=== PATIENT | female | born 1960 | race Caucasian/White ===

== ENCOUNTER 2024-01-21 18:32 | Inpatient (IN) | payer SELFPAY ==
[~2024-01-21] VITALS: Ht 152.4 cm; Wt 82.8 kg
[2024-01-21 21:27] VITALS: PULSE 93; RESP 16; TEMP 98.9
[2024-01-21 22:00] VITALS: BP 132/63; PULSE 102; RESP 22; TEMP 99.2; O2SAT 97
[2024-01-21] MEDS: AMIODARONE 900MG 900 MG in Premix Bag 1 BAG IV ONE (22:00)
[2024-01-21] MEDS: AMIODARONE HCL 150 MG/100 ML BAG IV ONE (22:36)
[2024-01-21 23:15] VITALS: PULSE 95; RESP 26; O2SAT 99
[2024-01-21 23:30] VITALS: BP 113/91; PULSE 143; RESP 30; O2SAT 100
[2024-01-21] MEDS: ENOXAPARIN SODIUM INJ 100 MG/ML SYR SC STA (23:44)
[2024-01-21 23:45] VITALS: PULSE 142; RESP 33; O2SAT 99
[2024-01-22] VITALS (46 sets, daily range): BP systolic 97–149; BP diastolic 58–121; PULSE 62–143; RESP 17–41; TEMP 97.3–98.2; O2SAT 91–100
[2024-01-22 06:51] LABS: TROPONIN I 0.257 ng/mL (0-0.300)
[2024-01-22] MEDS: AMIODARONE 900MG 500 ML IV ONE ×2 (09:00→20:23)
[2024-01-22] MEDS ORDERED: FUROSEMIDE40 MG PO (09:06)
[2024-01-22] MEDS: FUROSEMIDE INJ 10 MG/ML 4 ML VIAL IV SCH ×2 (09:15→14:00)
[2024-01-22] MEDS ORDERED: ONDANSETRON HCL INJ 2MG/ML 2ML 2 MG/ML VIAL IV PRN (12:45)
[2024-01-22] MEDS ORDERED: AMIODARONE 900MG 900 MG in Premix Bag 1 BAG IV SCH (15:15)
[2024-01-22] MEDS: METOPROLOL TARTRATE 25 MG TAB PO SCH (17:03)
[2024-01-22 19:21] LABS: BASOPHILS # (AUTO) 0.1 (0.0-0.1); BASOPHILS % 0.6 % (0.0-1.0); EOSINOPHILS % 0.2 % (0.0-6.0); HEMATOCRIT 39.4 % (34.2-44.1); HEMOGLOBIN 12.2 g/dL (12.0-16.0); LYMPHOCYTES % 9.6 % (18.0-39.1); MEAN CORPUSCULAR VOLUME 93.8 fL (81-99); MONOCYTES # (AUTO) 0.6 (0.2-0.8); MONOCYTES % 5.5 % (4.4-11.3); NEUTROPHILS # (AUTO) 8.5 (2.1-6.9); NEUTROPHILS % 83.9 % (38.7-80.0); PLATELET COUNT 202 x10e3/uL (140-360); WHITE BLOOD COUNT 10.15 x10e3/uL (4.8-10.8)
[2024-01-22 19:39] LABS: ALBUMIN 3.5 g/dL (3.5-5.0); ALBUMIN/GLOBULIN RATIO 1.1 (0.8-2.0); ANION GAP 16.1 mmol/L (8-16); BILIRUBIN,TOTAL 1.4 mg/dL (0.2-1.2); CALCIUM 8.6 mg/dL (8.4-10.2); CREATININE, SERUM 0.98 mg/dL (0.57-1.11); TOTAL PROTEIN 6.7 g/dL (6.5-8.1)
[2024-01-22 19:48] LABS: POTASSIUM 3.1 mmol/L (3.5-5.1)
[2024-01-22 19:58] LABS: THYROID STIMULATING HORMONE 0.037 uIU/mL (0.350-4.940); TROPONIN I 0.172 ng/mL (0-0.300)
[2024-01-23] VITALS (41 sets, daily range): BP systolic 97–147; BP diastolic 56–131; PULSE 32–131; RESP 19–38; TEMP 98.1–99.6; O2SAT 91–100
[2024-01-23 08:30] LABS: TROPONIN I 0.146 ng/mL (0-0.300)
[2024-01-23] MEDS: MUPIROCIN 2% OINT 22 GM TUBE TOP SCH (12:39)
[2024-01-23] MEDS: POTASSIUM CHLORIDE 10MEQ EA PO ONE ×2 (17:40→20:33)
[2024-01-23] MEDS: AMIODARONE HCL 200 MG TAB PO SCH (17:40)
[2024-01-24] VITALS (26 sets, daily range): BP systolic 102–140; BP diastolic 54–129; PULSE 66–138; RESP 18–32; TEMP 98–98.6; O2SAT 92–100
[2024-01-24 06:50] LABS: BASOPHILS # (AUTO) 0.1 (0.0-0.1); BASOPHILS % 0.5 % (0.0-1.0); EOSINOPHILS # (AUTO) 0.1 (0.0-0.4); EOSINOPHILS % 0.6 % (0.0-6.0); HEMATOCRIT 38.6 % (34.2-44.1); HEMOGLOBIN 11.8 g/dL (12.0-16.0); LYMPHOCYTES # (AUTO) 1.6 (1.0-3.2); LYMPHOCYTES % 17.7 % (18.0-39.1); MEAN CORPUSCULAR HEMOGLOBIN 28.9 pg (28-32); MEAN CORPUSCULAR HGB CONC 30.6 g/dL (31-35); MEAN CORPUSCULAR VOLUME 94.4 fL (81-99); MONOCYTES # (AUTO) 0.8 (0.2-0.8); MONOCYTES % 8.3 % (4.4-11.3); NEUTROPHILS # (AUTO) 6.7 (2.1-6.9); NEUTROPHILS % 72.7 % (38.7-80.0); PLATELET COUNT 160 x10e3/uL (140-360); RED BLOOD COUNT 4.09 x10e6/uL (3.6-5.1); RED CELL DISTRIBUTION WIDTH 13.7 % (11.7-14.4); WHITE BLOOD COUNT 9.25 x10e3/uL (4.8-10.8)
[2024-01-24 07:21] LABS: CALCIUM 8.3 mg/dL (8.4-10.2); CREATININE, SERUM 0.81 mg/dL (0.57-1.11)
[2024-01-24] MEDS: METOPROLOL TARTRATE 50 MG TAB PO SCH (08:53)
[2024-01-24] MEDS: DOCUSATE SODIUM 100 MG CAP PO SCH (08:54)
[2024-01-24] MEDS: MAGNESIUM SULF 1GRAM/DEXTROSE 100 ML IV ONE (11:13)
[2024-01-24] MEDS: MAGNESIUM OXIDE 400 MG TAB PO SCH (11:51)
[2024-01-24] MEDS: ENOXAPARIN INJ 80 MG/0.8 ML SYR SC ONE (13:11)
[2024-01-24] MEDS: POTASSIUM CHLORIDE 20 MEQ TAB CR PO ONE (14:34)
[2024-01-24] MEDS: AMIODARONE HCL 200 MG TAB PO SCH (17:35)
[2024-01-24] MEDS ORDERED: ENOXAPARIN INJ 80 MG/0.8 ML SYR SC SCH (21:00)
[2024-01-24] MEDS: SENNA-S TABLET PO SCH (21:00)
[2024-01-25] VITALS (22 sets, daily range): BP systolic 87–153; BP diastolic 33–111; PULSE 48–139; RESP 17–42; TEMP 98.3–100; O2SAT 90–100
[2024-01-25] MEDS: ENOXAPARIN INJ 80 MG/0.8 ML SYR SC SCH (01:21)
[2024-01-25 06:57] LABS: ALBUMIN 2.9 g/dL (3.5-5.0); ALBUMIN/GLOBULIN RATIO 0.9 (0.8-2.0); ANION GAP 14.3 mmol/L (8-16); BILIRUBIN,TOTAL 1.4 mg/dL (0.2-1.2); CALCIUM 8.5 mg/dL (8.4-10.2); CREATININE, SERUM 0.8 mg/dL (0.57-1.11); MAGNESIUM 1.9 MG/DL (1.3-2.1); TOTAL PROTEIN 6.3 g/dL (6.5-8.1)
[2024-01-25 07:01] LABS: POTASSIUM 3.3 mmol/L (3.5-5.1)
[2024-01-25] MEDS: POTASSIUM CHLORIDE 10MEQ EA PO SCH (09:56)
[2024-01-25] MEDS: LOSARTAN POTASSIUM 25 MG TAB PO SCH (10:16)
[2024-01-26] VITALS (10 sets, daily range): BP systolic 91–112; BP diastolic 58–85; PULSE 73–115; RESP 20–28; TEMP 98.1–99; O2SAT 92–99
[2024-01-26] MEDS: BENZONATATE 100 MG CAP PO PRN (00:16)
[2024-01-26 06:46] LABS: BASOPHILS # (AUTO) 0.1 (0.0-0.1); BASOPHILS % 0.5 % (0.0-1.0); EOSINOPHILS % 0.2 % (0.0-6.0); HEMATOCRIT 38.8 % (34.2-44.1); LYMPHOCYTES # (AUTO) 1.7 (1.0-3.2); LYMPHOCYTES % 13.5 % (18.0-39.1); MEAN CORPUSCULAR HEMOGLOBIN 29.2 pg (28-32); MEAN CORPUSCULAR HGB CONC 30.9 g/dL (31-35); MEAN CORPUSCULAR VOLUME 94.4 fL (81-99); MONOCYTES % 7.9 % (4.4-11.3); NEUTROPHILS # (AUTO) 9.9 (2.1-6.9); NEUTROPHILS % 77.4 % (38.7-80.0); PLATELET COUNT 193 x10e3/uL (140-360); RED BLOOD COUNT 4.11 x10e6/uL (3.6-5.1); WHITE BLOOD COUNT 12.73 x10e3/uL (4.8-10.8)
[2024-01-26 07:08] LABS: ALBUMIN 2.8 g/dL (3.5-5.0); ALBUMIN/GLOBULIN RATIO 0.8 (0.8-2.0); ANION GAP 12.9 mmol/L (8-16); BILIRUBIN,TOTAL 1.2 mg/dL (0.2-1.2); CALCIUM 8.7 mg/dL (8.4-10.2); CREATININE, SERUM 0.88 mg/dL (0.57-1.11); POTASSIUM 3.9 mmol/L (3.5-5.1); TOTAL PROTEIN 6.2 g/dL (6.5-8.1)
[2024-01-27] VITALS (21 sets, daily range): BP systolic 81–121; BP diastolic 60–87; PULSE 77–132; RESP 12–37; TEMP 98.2–98.8; O2SAT 96–100
[2024-01-27] MEDS: FUROSEMIDE INJ 10 MG/ML 2 ML VIAL IV SCH (10:36)
[2024-01-27] MEDS: ALBUTEROL/IPRATROPIUM 3 ML NEB ONE (15:30)
[2024-01-27] MEDS: APIXABAN 5 MG TABLET PO SCH (20:10)
[2024-01-28] VITALS (13 sets, daily range): BP systolic 98–106; BP diastolic 61–73; PULSE 79–122; RESP 18–36; TEMP 98.2–98.5; O2SAT 96–100
[2024-01-28] MEDS: ALBUTEROL SULF 0.083% NEB SOLN 3 ML NEB NEB PRN (00:19)
[2024-01-28 06:32] LABS: BASOPHILS % 0.3 % (0.0-1.0); EOSINOPHILS % 0.1 % (0.0-6.0); HEMATOCRIT 37.2 % (34.2-44.1); HEMOGLOBIN 11.3 g/dL (12.0-16.0); LYMPHOCYTES # (AUTO) 0.8 (1.0-3.2); LYMPHOCYTES % 5.3 % (18.0-39.1); MEAN CORPUSCULAR HEMOGLOBIN 28.8 pg (28-32); MEAN CORPUSCULAR HGB CONC 30.4 g/dL (31-35); MEAN CORPUSCULAR VOLUME 94.9 fL (81-99); MONOCYTES # (AUTO) 1.3 (0.2-0.8); NEUTROPHILS # (AUTO) 12.1 (2.1-6.9); NEUTROPHILS % 84.7 % (38.7-80.0); PLATELET COUNT 209 x10e3/uL (140-360); RED BLOOD COUNT 3.92 x10e6/uL (3.6-5.1); RED CELL DISTRIBUTION WIDTH 14.2 % (11.7-14.4); WHITE BLOOD COUNT 14.27 x10e3/uL (4.8-10.8)
[2024-01-28 07:06] LABS: ANION GAP 14.5 mmol/L (8-16); CALCIUM 8.6 mg/dL (8.4-10.2); CREATININE, SERUM 0.88 mg/dL (0.57-1.11); POTASSIUM 4.5 mmol/L (3.5-5.1)
[2024-01-28] MEDS ORDERED: AMIODARONE HCL200 MG PO (16:22)
[2024-01-28] MEDS ORDERED: COZAAR25 MG PO (16:22)
[2024-01-28] MEDS ORDERED: ELIQUIS5 MG PO (16:22)
[2024-01-28] MEDS ORDERED: FUROSEMIDE40 MG PO (16:22)
[2024-01-28] MEDS ORDERED: BENZONATATE100 MG PO (16:22)
[2024-01-28] MEDS ORDERED: TOPROL XL25 MG PO (16:22)
[2024-01-28] MEDS ORDERED: POTASSIUM CHLO20 ME1 PO (16:23)
[2024-01-28] MEDS ORDERED: AZITHROMYCIN250 MG PO (16:40)
[2024-01-28] MEDS: AMIODARONE HCL 200 MG TAB PO SCH (17:23)
[2024-01-28] MEDS: FUROSEMIDE 40 MG TAB PO SCH (17:24)
[2024-01-29] MEDS ORDERED: METOPROLOL SUCCINATE 25 MG TAB XL PO SCH (09:00)
== END 2024-01-28 18:05 | disposition home or self-care (01) | DRG 291 ==
LOC: FSED 19:18 → ERHOLD 20:57 → ICU 22:02
PROVIDERS: ADMIT Internal Medicine; ATTEND Internal Medicine
PROC: 02HV33Z Insertion of Infusion Device into Superior Vena Cava, Percutaneous Approach (ICD-10-PCS; principal; 2024-01-22)
PROC: B548ZZA Ultrasonography of Superior Vena Cava, Guidance (ICD-10-PCS; 2024-01-22)
PROC: 02PYX3Z Removal of Infusion Device from Great Vessel, External Approach (ICD-10-PCS; 2024-01-24)
DX: I11.0 Hypertensive heart disease with heart failure (principal); I26.99 Other pulmonary embolism without acute cor pulmonale; I50.43 Acute on chronic combined systolic (congestive) and diastolic (congestive) heart failure; I82.A11 Acute embolism and thrombosis of right axillary vein; I82.B11 Acute embolism and thrombosis of right subclavian vein; T82.898A Other specified complication of vascular prosthetic devices, implants and grafts, initial encounter; I82.611 Acute embolism and thrombosis of superficial veins of right upper extremity; R17 Unspecified jaundice; I48.0 Paroxysmal atrial fibrillation; Z79.01 Long term (current) use of anticoagulants; E87.6 Hypokalemia; E83.42 Hypomagnesemia; Z95.810 Presence of automatic (implantable) cardiac defibrillator; Z79.899 Other long term (current) drug therapy
CPT/HCPCS: 36415; 36569; 71045; 71046; 78580; 80048; 80053; 81003; 82550; 82553; 82948; 83036; 83735; 83880; 84100; 84443; 84484; 85025; 85379; 93005; 93306; 93971; 94799; 99252; 99284; A9540; J1650; J1940; J3475